=== PATIENT | male | born 1995 | race Caucasian/White ===

== ENCOUNTER 2017-04-19 20:34 | Emergency (ER) | payer MEDICAID, OTHER ==
[~2017-04-19] VITALS: Ht 180.3 cm; Wt 63.5 kg
[2017-04-19] MEDS ORDERED: HYDROcodone-ACET 5/325MG TAB PO ONE (23:00)
[2017-04-19 23:46] VITALS: BP 110/66
== END 2017-04-20 01:03 | disposition home or self-care (01) ==
LOC: ER 20:48
DX: S42.032A Displaced fracture of lateral end of left clavicle, initial encounter for closed fracture (principal); R22.0 Localized swelling, mass and lump, head; R42 Dizziness and giddiness; V43.52XA Car driver injured in collision with other type car in traffic accident, initial encounter; Y93.89 Activity, other specified; Y92.89 Other specified places as the place of occurrence of the external cause; Y99.8 Other external cause status
CPT/HCPCS: 29105; 70450; 73030